=== PATIENT | male | born 1960 | race Hispanic/Latino ===

== ENCOUNTER 2023-07-05 22:47 | Emergency (ER) | payer SELFPAY ==
[2023-07-05 23:40] LABS: Hematocrit 43.3 % (39.6-49.0); Lymphocytes % 39.8 % (15.3-44.8); MCV 88.8 fL (80-100); MPV 8.9 fL (7.6-11.3); Platelets 190 thou/uL (152-406); RBC Red Blood Cell Count 4.88 M/uL (4.33-5.43)
[2023-07-05 23:46] LABS: Protime INR 0.99
[2023-07-05] MEDS ORDERED: cloNIDine HCL 0.1 MG TAB ONE (23:52)
[2023-07-05] MEDS ORDERED: NA CHLORIDE 0.9% 500 ML ONE (23:53)
[2023-07-05] MEDS ORDERED: INSULIN REGULAR (HUMAN) 100 UNIT/ML ONE (23:53)
[2023-07-05 23:57] LABS: Potassium 3.5 mEq/L (3.5-5.1)
[2023-07-06] MEDS ORDERED: HYDRALAZINE HCL 20 MG/ML VIAL ONE (01:41)
[2023-07-06] MEDS ORDERED: AMLODIPINE 10 MG TAB ONE (01:41)
[2023-07-06] MEDS ORDERED: METFORMIN HCL 500 MG TAB ONE (01:41)
--- NOTE | 2023-07-06 01:47 | EDPHYS ---
Physician Documentation [facility] Name: Vickey Judge Age: 62 yrs Sex: Male : 1960 Arrival Date: 07/05/2023 Time: 22:47 Bed 7 Private MD: ED Physician Glen Hannon HPI: 07/05 23:30 This 62 yrs old Male presents to ER via Ambulatory with complaints of High cp Blood Pressure, High Blood Sugar. 23:30 The patient has elevated blood pressure and discovered this at home, with a home device.cp 23:30 Associated signs and symptoms: Pertinent negatives: chest pain, dizziness, headache, cp visual changes, vomiting, weakness. 23:30 Severity of symptoms: in the emergency department the blood pressure is are actually cp worse, 225 mm Hg. 23:30 Patient is a 62-year-old male who presents to the emergency department after being cp recently discharged from this hospital earlier today after suffering a stroke. Patient returns with family who report that patient's blood pressure has been elevated and that his blood glucose has been elevated since discharge. Patient denies any headache, change in vision, chest pain and lower abdominal pain. Family reports that patient was not discharged with medications for his diabetes and or his blood pressure. Historical: - Allergies: 23:03 No Known Allergies; rv - PMHx: 23:03 Diabetes - NIDDM; Hypertension; rv - PSHx: 23:03 None; rv - Immunization history:: Adult Immunizations up to date. - Social history:: Smoking status: Patient denies any tobacco usage or history of. ROS: 23:30 Constitutional: Negative for body aches, chills, fever, poor PO intake, cp 23:30 Cardiovascular: Negative for chest pain, cp 23:30 Respiratory: Negative for cough, shortness of breath, wheezing, 23:30 Abdomen/GI: Negative for abdominal pain, nausea, vomiting, and diarrhea, 23:30 Neuro: Negative for altered mental status, dizziness, headache, syncope, weakness, 23:30 All other systems are negative, Exam: 23:35 Constitutional: The patient appears in no acute distress, alert, awake, comfortable, cp non-diaphoretic, non-toxic, well developed, well nourished, 23:35 Head/Face: Normocephalic, atraumatic. cp 23:35 Eyes: Periorbital structures: appear normal, Conjunctiva: normal, no exudate, no injection, Sclera: no appreciated abnormality, Lids and lashes: appear normal, bilaterally, 23:35 ENT: External ear(s): are unremarkable, Nose: is normal, Mouth: Lips: moist, Oral mucosa: pink and intact, moist, Posterior pharynx: Airway: no evidence of obstruction, patent, 23:35 Neck: ROM/movement: is normal, is supple, without pain, no range of motions limitations, 23:35 Chest/axilla: Inspection: normal, 23:35 Cardiovascular: Rate: normal, Rhythm: regular, Edema: ankle edema, that is very mild, JVD: is not appreciated, 23:35 Respiratory: the patient does not display signs of respiratory distress, Respirations: normal, no use of accessory muscles, no retractions, labored breathing, is not present, Breath sounds: are clear throughout, no decreased breath sounds, no stridor, no wheezing, 23:35 Abdomen/GI: Inspection: abdomen appears normal, Palpation: abdomen is soft and non-tender, in all quadrants, 23:35 Neuro: Orientation: no acute changes, per family, Mentation: no acute changes, per family, Motor: no acute changes, Sensation: no acute changes, 07/06 00:33 ECG was reviewed by the Attending Physician. cp Vital Signs: 07/05 23:00 BP 225 / 112; Pulse 64; Resp 16; Temp 98; Pulse Ox 99% ; Weight 73.94 kg; Height 5 ft. rv 6 in. ; 23:25 BP 205 / 108; Pulse 60; Resp 15; Pulse Ox 98% on R/A; nw1 1118 00:30 BP 186 / 98; Pulse 65; Resp 15; Pulse Ox 97% on R/A; nw1 01:37 BP 166 / 98; Pulse 57; Resp 18; Pulse Ox 97% ; la4 07/05 23:00 Body Mass Index 26.31 (73.94 kg, 167.64 cm) rv Tung Coma Score: 07/05 23:25 Eye Response: spontaneous(4). Motor Response: obeys commands(6). Verbal Response: nw1 oriented(5). Total: 15. 07/06 01:37 Eye Response: spontaneous(4). Motor Response: obeys commands(6). Verbal Response: la4 oriented(5). Total: 15. MDM: 07/05 23:13 Patient medically screened. 07/06 01:45 Data reviewed: vital signs, nurses notes, lab test result(s), EKG. 01:45 Consideration of Admission/Observation Escalation of care including cp admission/observation considered. I considered the following discharge prescriptions or medication management in the emergency department Medications were administered in the Emergency Department. See MAR. Test considered but Not performed: CT: head. Historians other than the Patient: Spouse/Significant Other: provides history and [place] translation. Care significantly affected by the following chronic conditions: Diabetes, Hypertension. Counseling: I had a detailed discussion with the patient and/or guardian regarding the historical points, exam findings, and any diagnostic results supporting the discharge/admit diagnosis, the presence of at least one elevated blood pressure reading (>120/80) during this emergency department visit, lab results, the need for outpatient follow up, a family practitioner, to return to the emergency department if symptoms worsen or persist or if there are any questions or concerns that arise at home. Response to treatment: the patient's symptoms have markedly improved after treatment, and as a result, I will discharge patient. 07/05 23:18 Order name: Glucose, Ancillary Testing; Complete Time: 23:23 EDPA 07/05 23:23 Interpretation: Reviewed. 07/05 23:24 Order name: CBC with Diff; Complete Time: 00:03 07/06 00:03 Interpretation: Reviewed. 07/05 23:24 Order name: BMP; Complete Time: 00:03 07/06 00:03 Interpretation: Normal except: NA 133; GLUC 319; BUN 22; CRE 1.50; GFR 52. 07/05 23:25 Order name: PT-INR; Complete Time: 00:03 07/06 01:39 Order name: Glucose, Ancillary Testing; Complete Time: 01:45 EDPA 07/05 23:24 Order name: EKG; Complete Time: 23:25 07/05 23:24 Order name: EKG - Nurse/Tech; Complete Time: 00:34 07/05 23:24 Order name: IV; Complete Time: 23:50 EC:33 Rate is 63 beats/min. Rhythm is regular. LA interval is normal. QRS interval is cp prolonged at 154 msec. QT interval is normal. T waves are Inverted in lead aVR. Interpreted by me. Reviewed by me. Administered Medications: 07/05 23:49 Drug: cloNIDine PO 0.2 mg PO once {Note: 201/101 61.} Route: PO; nw 23:49 Drug: NS 0.9% IV 500 ml IV at 500 ml/hr continuous Route: IV; Rate: 500 ml/hr; Site: nw1 right forearm; 23:50 Drug: Insulin Regular Human IVP 5 units IVP once {Co-Signature: laHelen (Phoebe Mayberry nw1 RN).} Route: IVP; Site: right forearm; 07/06 01:50 Drug: amLODIPine PO 10 mg PO once Route: PO; 01:50 Not Given (Physician Discretion): [id number] mg PO once; with meal or snack 01:50 Not Given (Physician Discretion): hydralazine5 mg IVP once Disposition Summary: 07/06/23 01:46 Discharge Ordered Notes: Location: Home cp Problem: chronic cp Symptoms: have improved cp Condition: Stable cp Diagnosis - Hypertensive heart disease without heart failure cp - Diabetes mellitus due to underlying condition with hyperglycemia cp Followup: cp - With: Private Physician - When: 2 - 3 days - Reason: Recheck today's complaints Discharge Instructions: - Discharge Summary Sheet cp - Hyperglycemia cp - Hypertension, Adult cp - Daily Diabetes Mellitus Record cp - Blood Glucose Monitoring, Adult cp - Diabetes Mellitus and Nutrition, Adult cp - Aspirin and Your Heart cp - Form - Blood Pressure Record Sheet cp - How to Take Your Blood Pressure cp Forms: - Medication Reconciliation Form cp - Thank You Letter cp - Antibiotic Education cp - Prescription Opioid Use cp - Patient Portal Instructions cp - Leadership Thank You Letter cp Prescriptions: - amlodipine-benazepril 10-40 mg Oral capsule - take 1 capsule ORAL route daily; 30 capsule; Refills: 0, Product Selection cp Permitted - clonidine HCl 0.2 mg Oral tablet - take 1 tablet ORAL route daily; 30 tablet; Refills: 0, Product Selection cp Permitted - Glipizide 10 mg Oral tablet - take 1 tablet ORAL route once daily before a meal; 30 tablet; Refills: 0, cp Product Selection Permitted - Metformin 1,000 mg Oral tablet - take 1 tablet ORAL route every 12 hours with morning and evening meals; 60 cp tablet; Refills: 0, Product Selection Permitted Addendum: 07/07/2023 02:26 I was immediately available for consultation during this patient's visit. I did not e c2 personally see the patient or guide the patient's care.. Signatures: Dispatcher [employer] Nito Lai PA PA cp Vicente, Ronaldo RN RN rv Glen Hannon MD MD ec2 Camelia Washington RN RN nw1 Phoebe Mayberry RN4
--- NOTE | 2023-07-06 01:47 | ER ---
Nurse's Notes [facility] Name: Vickey Judge Age: 62 yrs Sex: Male : 1960 Arrival Date: 07/05/2023 Time: 22:47 Bed 7 Private MD: Diagnosis: Hypertensive heart disease without heart failure;Diabetes mellitus due to underlying condition with hyperglycemia Presentation: 07/05 23:00 Chief complaint: Patient states: blood was high at home, over 200 systolic, and blood rv sugar of 333. pt is on insulin. pt run out of insulin at home. pt was recently admitted for stroke, discharged today. Coronavirus screen: At this time, the client does not indicate any symptoms associated with coronavirus-19. Ebola Screen: No symptoms or risks identified at this time. Initial Sepsis Screen: Does the patient meet any 2 criteria? No. Patient's initial sepsis screen is negative. Does the patient have a suspected source of infection? No. Patient's initial sepsis screen is negative. Risk Assessment: Do you want to hurt yourself or someone else? Patient reports no desire to harm self or others. 23:00 Method Of Arrival: Ambulatory rv 23:00 Acuity: PASCUAL 2 rv 23:00 Onset of symptoms was July 05, 2023. rv Triage Assessment: 23:03 General: Appears comfortable, Behavior is calm, cooperative. Pain: Denies pain. Neuro: rv Level of Consciousness is awake, alert, obeys commands, Oriented to person, place, time, situation. Cardiovascular: Capillary refill < 3 seconds Patient's skin is warm and dry. Respiratory: Airway is patent Respiratory effort is even, unlabored. GI: No signs and/or symptoms were reported involving the gastrointestinal system. : No signs and/or symptoms were reported regarding the genitourinary system. Derm: Skin is intact. Historical: - Allergies: 23:03 No Known Allergies; rv - PMHx: 23:03 Diabetes - NIDDM; Hypertension; rv - PSHx: 23:03 None; rv - Immunization history:: Adult Immunizations up to date. - Social history:: Smoking status: Patient denies any tobacco usage or history of. Screenin:25 [facility] ED Fall Risk Assessment (Adult) History of falling in the last 3 months, nw1 including since admission No falls in past 3 months (0 pts) Confusion or Disorientation No (0 pts) Intoxicated or Sedated No (0 pts) Impaired Gait No (0 pts) Mobility Assist Device Used No (0 pt) Altered Elimination No (0 pt) Score/Fall Risk Level 0 - 2 = Low Risk Oriented to surroundings, Maintained a safe environment, Assessed \T\ reinforced patient's understanding of fall precautions, Provided non-skid footwear, Hourly rounding (assess needs \T\ fall precautionary measures) done, Used ambulatory aids as needed (educated on \T\ assisted with). Abuse screen: Denies threats or abuse. Denies injuries from another. Nutritional screening: No deficits noted. Tuberculosis screening: No symptoms or risk factors identified. Assessment: 23:23 General: Appears in no apparent distress. Behavior is calm, cooperative, appropriate nw1 for age. Pain: Denies pain. Neuro: No deficits noted. Cardiovascular: Denies chest pain, diaphoresis, fatigue, lightheadedness, nausea, palpitations, shortness of breath, syncope, vomiting, Capillary refill < 3 seconds HTN. Respiratory: No deficits noted. Airway is patent Trachea midline Respiratory effort is even, unlabored, Respiratory pattern is regular, symmetrical. GI: Abdomen is obese. : No deficits noted. No signs and/or symptoms were reported regarding the genitourinary system. Derm: No deficits noted. No signs and/or symptoms reported regarding the dermatologic system. Musculoskeletal: No deficits noted. No signs and/or symptoms reported regarding the musculoskeletal system. Vital Signs: 23:00 BP 225 / 112; Pulse 64; Resp 16; Temp 98; Pulse Ox 99% ; Weight 73.94 kg; Height 5 ft. rv 6 in. ; 23:25 BP 205 / 108; Pulse 60; Resp 15; Pulse Ox 98% on R/A; nw1 07/06 00:30 BP 186 / 98; Pulse 65; Resp 15; Pulse Ox 97% on R/A; nw1 01:37 BP 166 / 98; Pulse 57; Resp 18; Pulse Ox 97% ; la4 07/05 23:00 Body Mass Index 26.31 (73.94 kg, 167.64 cm) rv Tung Coma Score: 07/05 23:25 Eye Response: spontaneous(4). Motor Response: obeys commands(6). Verbal Response: nw1 oriented(5). Total: 15. 07/06 01:37 Eye Response: spontaneous(4). Motor Response: obeys commands(6). Verbal Response: la4 oriented(5). Total: 15. ED Course: 07/05 22:48 Patient arrived in ED. ag3 22:50 Nito Matthews PA is PHCP. cp 22:50 Glen Hannon MD is Attending Physician. cp 23:03 Triage completed. rv 23:03 Arm band placed on right wrist. rv 23:14 Camelia Washington, SIMBA is Primary Nurse. nw1 23:25 Patient has correct armband on for positive identification. Placed in gown. Bed in low nw1 position. Call light in reach. Side rails up X2. Adult w/ patient. Provided Education on: POC. Door closed. Noise minimized. Warm blanket given. Verbal reassurance given. 23:25 No provider procedures requiring assistance completed. nw1 23:50 Inserted saline lock: 18 gauge in right forearm, using aseptic technique. nw1 07/06 02:04 IV discontinued, intact, bleeding controlled, No redness/swelling at site. Pressure nw1 dressing applied. Administered Medications: 07/05 23:49 Drug: cloNIDine PO 0.2 mg PO once {Note: 201/101 61.} Route: PO; nw1 23:49 Drug: NS 0.9% IV 500 ml IV at 500 ml/hr continuous Route: IV; Rate: 500 ml/hr; Site: nw1 right forearm; 23:50 Drug: Insulin Regular Human IVP 5 units IVP once {Co-Signature: la4 (Phoebe Mayberry nw1 RN).} Route: IVP; Site: right forearm; 07/06 01:50 Drug: amLODIPine PO 10 mg PO once Route: PO; nw1 01:50 Not Given (Physician Discretion): [id number] mg PO once; with meal or snack nw1 01:50 Not Given (Physician Discretion): hydralazine5 mg IVP once nw1 Medication: 07/05 23:25 VIS not applicable for this client. nw1 Outcome: 07/06 01:46 Discharge ordered by . cp 02:04 Discharged to home via wheelchair, with family, nw1 02:04 Condition: stable 02:04 Discharge instructions given to patient, family, Instructed on discharge instructions, follow up and referral plans. medication usage, Demonstrated understanding of instructions, follow-up care, medications, Prescriptions given X 4, 02:05 Patient left the ED. nw1 Signatures: Nito Matthews PA PA cp Vicente, Ronaldo RN RN Maira Cline3 Phoebe Mayberry RN RN la4 Camelia Washington RN RN nw1 Phoebe Mayberry RN la4
[2023-07-06 02:11] VITALS: TEMP 98
[2023-07-06 02:14] VITALS: O2SAT 97
[2023-07-06 02:16] VITALS: BP 166/98
--- NOTE | 2023-07-10 17:07 | EKG ---
Test Date: 2023-07-06 Test Time: 00:26:27 [employer] Veget[employer] Classer: [place] MEASUREMENT RESULTS: Intervals: Rate: 63 MA: 168 QRSD: 154 QT: 430 QTc: 440 [place]: P: 65 MA: 168 QRS: -87 T: 51 INTERPRETIVE STATEMENTS: Normal sinus rhythm Right bundle branch block Left anterior fascicular block Bifascicular block Lateral infarct, age undetermined Abnormal ECG Compared to ECG 06/28/2017 16:03:11 Right bundle-branch block now present Bifascicular block now present Myocardial infarct finding still present Electronically Signed On 07-10-23 16:55:30 ENGINEER by Josias Jones
== END 2023-07-06 02:05 | disposition home or self-care (01) ==
LOC: ER 22:47
DX: I11.9 Hypertensive heart disease without heart failure (principal); E11.65 Type 2 diabetes mellitus with hyperglycemia
CPT/HCPCS: 36415; 80048; 82947; 85025; 85610; 93005; 96374; 99284; J0360; J1815; J7040